=== PATIENT | male | born 1965 | race Caucasian/White ===

== ENCOUNTER 2022-06-11 09:37 | Inpatient (IN) ==
[2022-06-11] MEDS ORDERED: IOPAMIDOL 100 ML BOTTLE IV ONE (09:38)
[2022-06-11] MEDS ORDERED: 0.9 % SODIUM CHLORIDE 1,000 ML IV ONE (10:02)
--- NOTE | 2022-06-11 10:27 | XRay Report ---
INDICATION: mid thoracic pain TECHNIQUE: PA and lateral upright chest x-ray COMPARISON: None FINDINGS: Lungs: Lungs are negative. No focal pulmonary parenchymal infiltrate or mass Heart, vascular: No significant cardiomegaly. Pulmonary vascularity is normal. No pulmonary edema or pulmonary congestion Mediastinum, he: No mediastinal widening. No hilar mass Pleura:No pleural fluid. No pleural-based mass or calcification Thoracic spine, ribs: No thoracic compression fracture. Ribs are negative. No fracture. No lytic lesion IMPRESSION: Negative PA and lateral chest x-ray Interpreted and Authenticated by: Douglas Woods 06/11/22
[2022-06-11 11:29] LABS: Basophils # (Auto) 0.06 K/mcL (0.00-0.30); Basophils % (Auto) 0.7 % (0.0-2.0); Eosinophils % (Auto) 3.7 % (0.0-7.0); Hematocrit 45.4 % (40.1-51.0); Hemoglobin 15.6 g/dL (13.7-17.5); Lymphocytes # (Auto) 1.72 K/mcL (1.50-4.80); Lymphocytes % (Auto) 21.2 % (15.5-49.0); Mean Cell Volume 89.7 fL (80.0-100.0); Mean Corpuscular HGB Conc 34.4 g/dL (31.0-36.0); Mean Platelet Volume 10.5 fL (8.8-12.5); Monocytes # (Auto) 0.58 K/mcL (0.10-0.90); Monocytes % (Auto) 7.2 % (1.0-12.0); Platelet Count 389 K/mcL (140-440); RBC 5.06 M/mcL (4.63-6.08); Red Cell Distribution Width 12.9 % (11.5-14.5); WBC 8.1 K/mcL (4.5-11.0)
--- NOTE | 2022-06-11 11:40 | Cat Scan Report ---
INDICATION: epigatric pain. 25# unintended wt. loss. COMPARISON: None. TECHNIQUE: Axial images were obtained through the abdomen and pelvis. Sagittally and coronally reformatted images. 80 mL Isovue 370 injected intravenously. Oral contrast material was not administered FINDINGS: Lung bases:Negative. No pulmonary parenchymal nodule. No pleural fluid or pericardial fluid There is a moderate hiatal hernia. Liver:Negative. No focal intrahepatic mass. No focal abnormality. Liver contour is smooth. No evidence for cirrhosis Gallbladder, bilary:No calcified gallstones. No gallbladder wall thickening. No dilated intra or extrahepatic bile ducts. Spleen:No splenomegaly. Normal enhancement of splenic and portal veins. Pancreas:No pancreatic mass. No peripancreatic abnormality Adrenal glands:Negative Kidneys,ureters,bladder:No solid renal mass. No hydronephrosis. No obstructing or nonobstructing calculi. No hydroureter. No ureteral calculus. No bladder stone. No detectable bladder mass. Gastrointestinal:No detectable colonic mass. There is no diverticulitis. There is mild sigmoid diverticulosis. Small bowel is fluid-filled and mildly prominent. Jejunum measures approximately 18 mm in maximum cross-sectional diameter. There is no transition point. No evidence for significant obstruction Moderate hiatal hernia. Stomach and duodenum are otherwise negative Appendix: The appendix is negative Vascular:Negative abdominal aorta. Superior mesenteric artery and celiac trunk are normal. Normal opacification of the inferior mesenteric artery. There is a retroaortic aortic left renal vein Lymphatic:No retroperitoneal or mesenteric adenopathy Mesentery, peritoneum: No free intraperitoneal fluid. No mesenteric or retroperitoneal mass. No intra-abdominal abscess. Reproductive:Prostate is not significantly enlarged Musculoskeletal:No lumbar compression fractures. Sacrum and pelvis are negative. No hip fracture. No abdominal wall or inguinal hernia IMPRESSION: 1. Moderate hiatal hernia 2. Mild sigmoid diverticulosis The exam was performed using radiation dose optimization techniques including, but not limited to, automated exposure control, adjustment of the mA and/or kV according to patient size and use of iterative reconstruction technique. Interpreted and Authenticated by: Douglas Woods 06/11/22
[2022-06-11 11:50] LABS: ALT/SGPT 12 U/L (<40); AST/SGOT 14 U/L (<40); Albumin 5.1 gm/dL (3.2-5.2); Alkaline Phosphatase 127 U/L (39-117); Bilirubin,Total 0.5 mg/dL (0.1-1.0); Blood Urea Nitrogen 8 mg/dL (6-20); Calcium 10.5 mg/dL (8.6-10.4); Carbon Dioxide 28 mmol/L (22-30); Chloride 100 mmol/L (96-108); Globulin 2.5 gm/dL (2.2-3.7); Glomerular Filtration Rate 100; Glucose 89 mg/dL (70-105)
--- NOTE | 2022-06-11 11:57 | Emergency Department Note ---
Abdominal Pain HPI General Chief Complaint: Abdominal Pain Stated Complaint: Back pain Time Seen by Provider: 06/11/22 09:47 Source: patient Mode of arrival: ambulatory Limitations: no limitations History of Present Illness HPI Narrative: Narrative: 56-year-old male presents emergency department complaining of epigastric abdominal pain that radiates through to his back. He states that in March he found himself unable to eat and that over the next few months his ability to eat got worse and worse till now when he is only able to eat oatmeal and soup. States that his weight was 162 pounds and is now down to 137, a 25 pound unintended weight loss. He describes abdominal pain as sharp, stabbing. Rates it as an 8 on a 0-to-10 scale. Pain is worse when he eats. No prior similar. Pain radiates through to the back. Pain is intermittent depending on when he eats. Patient states that he does smoke tobacco but rarely drinks alcohol. He takes no medicines. He has no medical allergies except Actifed. Related Data Home Medications Medication Instructions Recorded Confirmed No Known Home Meds 06/11/22 06/11/22 Allergies Allergy/AdvReac Type Severity Reaction Status Date / Time No Known Drug Allergies Allergy Unverified 06/11/22 10:34 Review of Systems ROS ROS Narrative: Narrative: Constitutional: Denies fever Eyes: Denies eye discharge ENT ED: Denies throat pain or rhinorrhea Cardiovascular: Denies chest pain Respiratory: Denies shortness of breath Gastrointestinal: Reports abdominal pain, nausea (With food) and vomiting; Denies diarrhea Genitourinary: Denies dysuria Musculoskeletal: Reports back pain Integumentary: Denies rash Neurological: Denies headache Psychiatric: Reports anxiety Hematological/Lymphatic: Denies easy bleeding Allergic/Immunologic: Denies facial swelling PFS Narrative Patient History Narrative: Narrative: Medical/Surgical/Family History All Active Problems (Updated 06/11/22 @ 21:51 by Lopez Roque MD) Unexplained weight loss (Acute) Weight loss (Acute) Dysphagia (Acute) Acute pancreatitis (Acute) Exam Narrative Narrative: Narrative: Maximal tenderness of the pain was in the epigastric area. From there it radiated through to the back. Patient did not have any peritoneal signs. General Limitations: no limitations General appearance: Present alert and in distress Head Head: Present atraumatic and normocephalic Eye Eye: Present EOMI Neck Neck: Present normal inspection and trachea midline; Absent tenderness Chest Chest: Present symmetric chest wall rise Respiratory Respiratory: Present normal lung sounds bilaterally; Absent respiratory distress or wheezes Cardiovascular Cardiovascular: Present regular rate and normal rhythm Adbominal Abdominal: Present tenderness (Tender in the epigastric area with some radiation to the left upper quadrant. No masses. No peritoneal signs.); Absent distention, guarding, rebound or rigidity Extremities Extremities: Present normal inspection; Absent pedal edema or pretibial edema Back Back: Present normal inspection; Absent tenderness Neurological Neurological: Present alert and oriented X3 Psychiatric Psychiatric: Present normal affect and normal mood Skin Skin: Present warm (WNL) and dry Course Vital Signs Vital signs: Vital Signs Temperature 98.1 F 06/11/22 09:39 Pulse Rate 105 H 06/11/22 09:39 Respiratory Rate 18 06/11/22 09:39 Blood Pressure 133/91 06/11/22 09:39 Pulse Oximetry (%) 99 06/11/22 09:39 Oxygen Delivery Method 06/11/22 09:39 Temperature 98.9 F 06/11/22 19:34 Pulse Rate 65 06/11/22 19:34 Respiratory Rate 12 06/11/22 19:34 Blood Pressure 131/95 06/11/22 19:34 Pulse Oximetry (%) 97 06/11/22 19:34 Oxygen Delivery Method 06/11/22 19:[address] [facility] MDM Narrative Medical decision making narrative: Narrative: Middle-age male with 25 pound weight loss and epigastric pain since March with difficulty eating. Differential diagnosis includes gastric ulcer, GERD, gastritis, pancreatitis, obstructing tumor, other. Chest x-ray was unremarkable. CT scan of the abdomen showed: IMPRESSION: 1. Moderate hiatal hernia 2. Mild sigmoid diverticulosis White count was normal at 8.1. Hemoglobin was normal at 15.6. Chemistry panel was normal except for minimally elevated calcium of 10.5 and a mildly elevated alkaline phosphatase of 127. Lipase elevated at 283. Patient was diagnosed with having acute pancreatitis. Case was discussed with Dr. OVALLE. He requested we obtain triglyceride level. We obtain that and it was normal. Dr. Sarah then admitted the patient to the hospital for further care. Sepsis Sepsis Identified: No Lab Data Result diagrams: 06/11/22 10:03 06/11/22 10:20 Labs: Lab Results 06/11/22 06/11/22 06/11/22 Range/Units 10:03 10:03 10:20 WBC 8.1 (4.5-11.0) K/mcL RBC 5.06 (4.63-6.08) M/mcL Hgb 15.6 (13.7-17.5) g/dL Hct 45.4 (40.1-51.0) % MCV 89.7 (80.0-100.0) fL MCH 30.8 (26.0-34.0) pg MCHC 34.4 (31.0-36.0) g/dL RDW 12.9 (11.5-14.5) % Plt Count 389 (140-440) K/mcL MPV 10.5 (8.8-12.5) fL Immature Gran % (Auto) 0.2 (0.0-0.5) % Neut % (Auto) 67.0 (38.0-78.0) % Lymph % (Auto) 21.2 (15.5-49.0) % [place] % (Auto) 7.2 (1.0-12.0) % Eos % (Auto) 3.7 (0.0-7.0) % Baso % (Auto) 0.7 (0.0-2.0) % Lymph # (Auto) 1.72 (1.50-4.80) K/mcL Winn # (Auto) 0.58 (0.10-0.90) K/mcL Eos # (Auto) 0.30 (0.00-0.70) K/mcL Baso # (Auto) 0.06 (0.00-0.30) K/mcL Immature Gran # 0.02 (0.00-0.05) K/mcl Absolute Neutrophils 5.42 (1.80-8.00) K/mcL Sodium 140 (133-145) mmol/L Potassium 4.3 (3.3-5.1) mmol/L Chloride 100 (96-108) mmol/L Carbon Dioxide 28 (22-30) mmol/L Anion Gap 12.0 (8.0-16.0) BUN 8 (6-20) mg/dL Creatinine 0.8 (0.7-1.2) mg/dL GFR Calculation 100 Glucose 89 (70-105) mg/dL Calcium 10.5 H (8.6-10.4) mg/dL Total Bilirubin 0.5 (0.1-1.0) mg/dL AST 14 (<40) U/L ALT 12 (<40) U/L Alkaline Phosphatase 127 H (39-117) U/L Total Protein 7.6 (5.9-8.4) gm/dL Albumin 5.1 (3.2-5.2) gm/dL Globulin 2.5 (2.2-3.7) gm/dL Albumin/Globulin Ratio 2.0 (1.0-2.3) Triglycerides 137 (<150) mg/dL Lipase 283 H (7-60) U/L Ethyl Alcohol mg/dL mg/dL Ethyl Alcohol g/dL (<0.010) gm/dL 06/11/22 Range/Units 10:20 WBC (4.5-11.0) K/mcL RBC (4.63-6.08) M/mcL Hgb (13.7-17.5) g/dL Hct (40.1-51.0) % MCV (80.0-100.0) fL MCH (26.0-34.0) pg MCHC (31.0-36.0) g/dL RDW (11.5-14.5) % Plt Count (140-440) K/mcL MPV (8.8-12.5) fL Immature Gran % (Auto) (0.0-0.5) % Neut % (Auto) (38.0-78.0) % Lymph % (Auto) (15.5-49.0) % Winn % (Auto) (1.0-12.0) % Eos % (Auto) (0.0-7.0) % Baso % (Auto) (0.0-2.0) % Lymph # (Auto) (1.50-4.80) K/mcL Winn # (Auto) (0.10-0.90) K/mcL Eos # (Auto) (0.00-0.70) K/mcL Baso # (Auto) (0.00-0.30) K/mcL Immature Gran # (0.00-0.05) K/mcl Absolute Neutrophils (1.80-8.00) K/mcL Sodium (133-145) mmol/L Potassium (3.3-5.1) mmol/L Chloride (96-108) mmol/L Carbon Dioxide (22-30) mmol/L Anion Gap (8.0-16.0) BUN (6-20) mg/dL Creatinine (0.7-1.2) mg/dL GFR Calculation Glucose (70-105) mg/dL Calcium (8.6-10.4) mg/dL Total Bilirubin (0.1-1.0) mg/dL AST (<40) U/L ALT (<40) U/L Alkaline Phosphatase (39-117) U/L Total Protein (5.9-8.4) gm/dL Albumin (3.2-5.2) gm/dL Globulin (2.2-3.7) gm/dL Albumin/Globulin Ratio (1.0-2.3) Triglycerides (<150) mg/dL Lipase (7-60) U/L Ethyl Alcohol mg/dL < 10.0 mg/dL Ethyl Alcohol g/dL < 0.010 (<0.010) gm/dL Discharge Plan Patient/Caregiver Discharge Instructions Pt seen by [facility] only: No Clinical Impression: Acute pancreatitis Activity: as instructed Patient Disposition: Xfer As Inpt ([facility]) Condition: Fair Discharge Date/Time: 06/11/22 15:46
[2022-06-11 14:14] LABS: Alcohol, Blood < 10.0 mg/dL; Alcohol,Blood < 0.010 gm/dL (<0.010)
--- NOTE | 2022-06-11 14:21 | Internal Med History&Physical ---
HPI History of Present Illness Patient information: Note initiated : 06/11/22 at 2:15 pm Service Date, if different from initiated Date: [] Patient: Pavel Funez 56 y/o M admitted on for Back pain. Chief Complaint: [abdominal pain] Chief complaint: abdominal pain History of present illness: Mr. Funez is a 56 year old M no past medical history presenting with 1 month history of epigastric abdominal pain, right upper quadrant abdominal pain with radiations to the right upper back, dysphagia, and unintentionally weight loss of 25 pounds over the past month. There was no prior similar episode. Over the past month, patient has moderate sharp cramping epigastric abdominal pain, right upper quadrant abdominal pain with radiation to the right upper back whenever he eats or drinks. He would feel like the food or drink would get stuck in his stomach. The pain is graded as moderate in intensity. It is relieved by raising his right arm up or moving the right arm wrong. He denies any nausea, vomiting, hematemesis, constipations, or any black or bloody stool. He also denies any bloody urine. Vital signs within normal limits. Labs significant for lack of leukocytosis with WBC 8.1. Lipase elevated to 283. Triglyceride 137 normal. Alkaline phosphatase 137 mildly elevated, with rest of the liver function test within normal limits. Serum alcohol level less than 0.01. Patient denies any cigarette smoking or illicit drug use, he is doing alcohol socially about once a week. CT abdomen of the pelvis showing moderate hiatal hernia and mild sigmoid diverticulosis. Chest x-ray and unremarkable. Constitutional Constitutional: Present weight loss; Absent chills, excessive sweating, fatigue, fever(s) or weakness EENT Eyes: Absent blurry vision, change in vision, loss of vision or other visual disturbances Ears: Absent decreased hearing or tinnitus Nose, mouth and throat: Absent abnormal hearing, dry mouth, headache(s), nasal congestion or sore throat Cardiovascular Cardiovascular: Absent chest pain, chest pain at rest, edema, irregular heart rhythm or palpatations Respiratory Respiratory: Absent cough, dyspnea or wheezing Gastrointestinal Gastrointestinal: Present abdominal pain and dysphagia; Absent constipation, diarrhea, nausea or vomiting Musculoskeletal Musculoskeletal: Absent back pain, deformity, limited range of motion, muscle cramps, muscle weakness or numbness Integumentary Integumentary: Absent lesions, rash or wounds Neurological Neurological: Absent focal weakness, headache(s) or numbness Psychiatric Psychiatric: Absent anxiety, depression or hallucinations PFSH PFSH All Active Problems (Updated 06/11/22 @ 14:22 by Khurram Raymond MD) Weight loss (Acute) Dysphagia (Acute) Acute pancreatitis (Acute) MEDS/ALLERGIES Home Medications and Allergies Allergies Allergy/AdvReac Type Severity Reaction Status Date / Time No Known Drug Allergies Allergy Unverified 06/11/22 10:34 EXAM Constitutional Vitals: Temp Pulse Resp BP Pulse Ox O2 Del Method 36.7 C 81 18 127/104 97 06/11/22 09:39 06/11/22 13:55 06/11/22 09:39 06/11/22 12:55 06/11/22 13:55 06/11/22 09:39 General appearance: cooperative and no acute distress Head Head exam: Present atraumatic and normocephalic Eye Eye exam: Present EOMI and PERRL ENT ENT exam: Present mucous membranes moist, normal exam and normal external ear exam Neck Neck exam: Present normal inspection; Absent lymphadenopathy, tenderness or thyromegaly Respiratory Respiratory exam: Absent accessory muscle use, respiratory distress or wheezes Cardiovascular Cardiovascular exam: Present normal rate and rhythm; Absent JVD GI/Abdominal GI/Abdominal exam: Present normal bowel sounds and soft; Absent organomegaly or tenderness Rectal Rectal exam: Present deferred Extremities Exam Extremities exam: Present full ROM, normal capillary refill and normal inspection; Absent tenderness Neurological Exam Neurological exam: Present alert, CN II-XII intact and oriented X3; Absent motor sensory deficit Psychiatric Psychiatric exam: Present normal affect and normal mood; Absent anxious or depressed Skin Skin exam: Present dry and intact DATA Data Completed and Pending Labs: Labs from last 24 hours 06/11/22 06/11/22 06/11/22 10:20 10:20 10:03 WBC RBC Hgb Hct MCV MCH MCHC RDW Plt Count MPV Immature Gran % (Auto) Neut % (Auto) Lymph % (Auto) [place] % (Auto) Eos % (Auto) Baso % (Auto) Lymph # (Auto) [place] # (Auto) Eos # (Auto) Baso # (Auto) Immature Gran # Absolute Neutrophils Sodium 140 Potassium 4.3 Chloride 100 Carbon Dioxide 28 Anion Gap 12.0 BUN 8 Creatinine 0.8 GFR Calculation 100 Glucose 89 Calcium 10.5 H Total Bilirubin 0.5 AST 14 ALT 12 Alkaline Phosphatase 127 H Total Protein 7.6 Albumin 5.1 Globulin 2.5 Albumin/Globulin Ratio 2.0 Triglycerides 137 Lipase 283 H Ethyl Alcohol mg/dL < 10.0 Ethyl Alcohol g/dL < 0.010 06/11/22 10:03 WBC 8.1 RBC 5.06 Hgb 15.6 Hct 45.4 MCV 89.7 MCH 30.8 MCHC 34.4 RDW 12.9 Plt Count 389 MPV 10.5 Immature Gran % (Auto) 0.2 Neut % (Auto) 67.0 Lymph % (Auto) 21.2 [place] % (Auto) 7.2 Eos % (Auto) 3.7 Baso % (Auto) 0.7 Lymph # (Auto) 1.72 [place] # (Auto) 0.58 Eos # (Auto) 0.30 Baso # (Auto) 0.06 Immature Gran # 0.02 Absolute Neutrophils 5.42 Sodium Potassium Chloride Carbon Dioxide Anion Gap BUN Creatinine GFR Calculation Glucose Calcium Total Bilirubin AST ALT Alkaline Phosphatase Total Protein Albumin Globulin Albumin/Globulin Ratio Triglycerides Lipase Ethyl Alcohol mg/dL Ethyl Alcohol g/dL A/P Assessment and plan (1) Acute pancreatitis: Status: Acute (2) Dysphagia: Status: Acute (3) Weight loss: Status: Acute Narrative A/P Narrative: Assessment and Plans: 1. Acute idiopathic pancreatitis: Inpatient med surg s/p IV fluid bolus given in the ED NPO with IV fluid NS@150cc/hr Zofran Oxycodone Morphine 2. Dysphagia, unintentional weight loss: Suspect upper GI obstruction Insert NG tube Consult general surgery Dr. Stephen for potential EGD, greatly appreciated GI ppx: not currently indicated DVT ppx: SCDs Code status: Full Prognosis: guarded Disposition: inpatient med surg Time Spent With Patient Time: Total time spent is greater than 50% in coordination of care (as documented) at patient's floor/unit and/or counseling patient: Total time spent with greater than 50% in coordination of care (as documented) at patient's floor/unit and/or counseling patient:: 50 - 70 minutes
[2022-06-11] MEDS ORDERED: BENZOCAINE 1 SPRAY 20% BOTTLE TOPICAL ONE (14:37)
--- NOTE | 2022-06-11 15:45 | XRay Report ---
INDICATION: Post placement nasogastric tube placement TECHNIQUE: Supine abdomen. COMPARISON: CT scan dated 06/11/2022 IMPRESSION: Esophagogastric tube is curled in the distal esophagus with its tip directed cephalad Interpreted and Authenticated by: Douglas Woods 06/11/22
[2022-06-11] MEDS ORDERED: ACETAMINOPHEN 325 MG TABLET PO PRN (15:50)
[2022-06-11] MEDS ORDERED: morphine 4 MG/ML VIAL IV PRN (15:50)
[2022-06-11] MEDS ORDERED: ONDANSETRON 4 MG/2 ML VIAL IV PRN (15:50)
[2022-06-11] MEDS ORDERED: oxyCODONE HCL 5 MG TABLET PO PRN (15:50)
[2022-06-11] MEDS ORDERED: IPRATROPIUM/ALBUTEROL 3 ML AMPUL.NEB NEB PRN (15:50)
[2022-06-11] MEDS: 0.9 % SODIUM CHLORIDE 1,000 ML IV SCH ×2 (16:27→23:17)
--- NOTE | 2022-06-11 17:52 | General Surgery Consult Note ---
HPI Date of Consult Consult Date: 06/11/22 Requesting physician: Angelina Stephen Primary Care Provider: PCP No Consult Narrative Patient Information: Note initiated : 06/11/22 at 5:47 pm Service Date, if different from initiated Date: [] Patient: Pavel Funez 56 y/o M admitted on 06/11/22 for Back pain. Chief Complaint: [] Chief complaint: Recurrent abdominal pain with nausea and vomiting and weight loss Reason for consult: Abdominal pain with nausea vomiting cc:: C 56-year-old male who presents with recurrent episodes of nausea vomiting with substernal chest pain and significant weight loss. He has been symptomatic since March of this year. He states that each time that he has p.o. intake with solid or liquid he has vomiting of the food intake shortly thereafter. He states that most of the time the food is foamy without any solid components. He has not had any hematemesis. He has noticed that his bowel movements or much softer however he is primarily taking in liquids. He rarely takes in solids. He has not had rectal bleeding and he denies having melena. He does have some postprandial epigastric pain with epigastric and right upper quadrant pain. CT of abdomen and pelvis does not show any obstructive symptoms. There is mild thickening of the gastric mucosa but this may be related to the fact that his stomach is decompressed. There are no calcified gallstones. Upper abdominal ultrasound was not performed. There is mild elevation of lipase. LFTs are normal. Total weight loss is about 25 pounds since March. Constitutional Constitutional: Present malaise EENT Ears: Present decreased hearing and ear pain Cardiovascular Cardiovascular: Present chest pain at rest and chest pain with activity; Absent palpatations or pedal edema Respiratory Respiratory: Absent dyspnea on exertion, wheezing or excessive phlegm production Gastrointestinal Gastrointestinal: Present abdominal pain, belching, change in bowel habits, change in stool character, cramping, dyspepsia, dysphagia, nausea and vomiting Genitourinary Genitourinary: change in urinary stream and difficulty urinating Musculoskeletal Musculoskeletal: Absent abnormal gait, deformity or myalgias Integumentary Integumentary: Absent pruritus Neurological Neurological: Present dizziness; Absent abnormal gait or tremor(s) Psychiatric Psychiatric: Absent abnormal sleep pattern or depression Endocrine Endocrine: Absent fatigue, palpitations or polyphagia Hematologic/Lymphatic Hematologic/Lymphatic: Absent easy bleeding, easy bruising or lymphadenopathy Allergic/Immunologic Allergic/Immunologic: Absent tongue swelling, throat swelling, itchy eyes, uticaria, wheezing, GI upset with certain foods or lip swelling PFSH PFSH All Active Problems (Updated 06/11/22 @ 18:16 by Angelina Stephen MD) Unexplained weight loss (Acute) Weight loss (Acute) Dysphagia (Acute) Acute pancreatitis (Acute) Social History smoking status: Current every day smoker MEDS/ALLERGIES Home Medications and Allergies Home Medications Medication Instructions Recorded Confirmed Type No Known Home Meds 06/11/22 06/11/22 History Allergies Allergy/AdvReac Type Severity Reaction Status Date / Time No Known Drug Allergies Allergy Unverified 06/11/22 10:34 Physical Examination Vital Signs Vital signs: Temp Pulse Resp BP Pulse Ox O2 Del Method 97.9 F 96 H 20 136/55 94 06/11/22 15:46 06/11/22 15:46 06/11/22 15:46 06/11/22 15:46 06/11/22 15:46 06/11/22 15:46 General physical appearance General physical exam: well developed and no distress; negative no pain or chronically ill Eyes Eye exam: PERRL and normal ocular movement ENT ENT exam: normal nares, normal mucosa, no hearing loss and no congestion Head Head exam IM: Present atraumatic, normal inspection and normocephalic Neck Neck exam: no masses, no bruits, trachea midline, no lymphadenopathy and no venous distension Cardiovascular Cardiovascular exam IM: Present normal rate and rhythm, RRR and +S1; Absent gallop or JVD Respiratory Respiratory exam: normal expansion, normal respiratory effort and clear to auscultation Abdomen Abdomen: Present soft and bowel sounds (Normal bowel sounds); Absent non tender Integumentary Integumentary: Present no rash, no growths and no abnormal pigmentation Neurologic Neurologic: Present normal coordination and normal sensation Musculoskeletal Musculoskeletal: Present normal gait and normal posture Psychiatric Psychiatric: Present oriented to time, oriented to person, oriented to place, speech is normal and memory intact Results Labs Result diagrams: 06/11/22 10:03 06/11/22 10:20 Labs: Abnormal lab results 06/11/22 Range/Units 10:20 Calcium 10.5 H (8.6-10.4) mg/dL Alkaline Phosphatase 127 H (39-117) U/L Lipase 283 H (7-60) U/L Diabetes panel 06/11/22 06/11/22 Range/Units 10:03 10:20 Sodium 140 (133-145) mmol/L Potassium 4.3 (3.3-5.1) mmol/L Chloride 100 (96-108) mmol/L Carbon Dioxide 28 (22-30) mmol/L BUN 8 (6-20) mg/dL Creatinine 0.8 (0.7-1.2) mg/dL Glucose 89 (70-105) mg/dL Calcium 10.5 H (8.6-10.4) mg/dL AST 14 (<40) U/L ALT 12 (<40) U/L Alkaline Phosphatase 127 H (39-117) U/L Total Protein 7.6 (5.9-8.4) gm/dL Albumin 5.1 (3.2-5.2) gm/dL Triglycerides 137 (<150) mg/dL Calcium panel 06/11/22 Range/Units 10:20 Calcium 10.5 H (8.6-10.4) mg/dL Albumin 5.1 (3.2-5.2) gm/dL Pituitary panel 06/11/22 Range/Units 10:20 Sodium 140 (133-145) mmol/L Potassium 4.3 (3.3-5.1) mmol/L Chloride 100 (96-108) mmol/L Carbon Dioxide 28 (22-30) mmol/L BUN 8 (6-20) mg/dL Creatinine 0.8 (0.7-1.2) mg/dL Glucose 89 (70-105) mg/dL Calcium 10.5 H (8.6-10.4) mg/dL Adrenal panel 06/11/22 Range/Units 10:20 Sodium 140 (133-145) mmol/L Potassium 4.3 (3.3-5.1) mmol/L Chloride 100 (96-108) mmol/L Carbon Dioxide 28 (22-30) mmol/L BUN 8 (6-20) mg/dL Creatinine 0.8 (0.7-1.2) mg/dL Glucose 89 (70-105) mg/dL Calcium 10.5 H (8.6-10.4) mg/dL Total Bilirubin 0.5 (0.1-1.0) mg/dL AST 14 (<40) U/L ALT 12 (<40) U/L Alkaline Phosphatase 127 H (39-117) U/L Total Protein 7.6 (5.9-8.4) gm/dL Albumin 5.1 (3.2-5.2) gm/dL All other labs normal. A/P Assessment and plan (1) Unexplained weight loss: Status: Acute (2) Dysphagia: Status: Acute (3) Acute pancreatitis: Status: Acute Plan Patient symptoms of a vague nature. Must rule out gallstone disease and follow- up with barium swallow and small bowel follow-through. Repeat CMP and amylase in the a.m. Upper abdominal ultrasound in the a.m. Sepsis Sepsis Identified: No Time Spent With Patient Time: Total time spent is greater than 50% in coordination of care (as documented) at patient's floor/unit and/or counseling patient:
[2022-06-11] MEDS: DOCUSATE SODIUM 100 MG CAPSULE PO SCH (19:41)
[2022-06-11] MEDS: SENNOSIDES 1 TABLET PO SCH (19:41)
[2022-06-11] MEDS: 0.9 % SODIUM CHLORIDE 10 ML SYRINGE IV SCH (21:12)
--- NOTE | 2022-06-12 05:50 | Ultrasound Report ---
INDICATION: Recurrent right upper quadrant and epigastric abdo TECHNIQUE: Grayscale and color flow Doppler spectral imaging COMPARISON: None. FINDINGS: Gallbladder:Negative. No cholelithiasis. No gallbladder wall thickening or pericholecystic fluid Common bile duct:No intra or extrahepatic bile duct dilatation.. Common bile duct measures6 mm Liver:No solid or cystic hepatic mass. Liver contour is smooth. No ascites. Portal vein:Normal hepatopedal portal venous flow Pancreas:Visualized portions of the pancreas are normal IMPRESSION: Negative gallbladder Interpreted and Authenticated by: Douglas Woods 06/12/22
[2022-06-12] MEDS: 0.9 % SODIUM CHLORIDE 10 ML SYRINGE IV SCH ×3 (05:57→20:32)
[2022-06-12] MEDS: 0.9 % SODIUM CHLORIDE 1,000 ML IV SCH ×4 (05:57→16:44)
[2022-06-12 07:24] LABS: Basophils # (Auto) 0.04 K/mcL (0.00-0.30); Basophils % (Auto) 0.6 % (0.0-2.0); Eosinophils % (Auto) 6.9 % (0.0-7.0); Hematocrit 37.1 % (40.1-51.0); Hemoglobin 12.6 g/dL (13.7-17.5); Lymphocytes # (Auto) 1.68 K/mcL (1.50-4.80); Lymphocytes % (Auto) 23.1 % (15.5-49.0); Mean Cell Volume 90.5 fL (80.0-100.0); Mean Platelet Volume 10.8 fL (8.8-12.5); Monocytes # (Auto) 0.48 K/mcL (0.10-0.90); Monocytes % (Auto) 6.6 % (1.0-12.0); Neutrophils % (Auto) 62.7 % (38.0-78.0); Platelet Count 309 K/mcL (140-440); Red Cell Distribution Width 13.1 % (11.5-14.5); WBC 7.3 K/mcL (4.5-11.0)
[2022-06-12 08:29] LABS: ALT/SGPT 8 U/L (<40); AST/SGOT 10 U/L (<40); Albumin 3.9 gm/dL (3.2-5.2); Albumin/Globulin Ratio 2.2 (1.0-2.3); Alkaline Phosphatase 93 U/L (39-117); Bilirubin,Total 0.6 mg/dL (0.1-1.0); Blood Urea Nitrogen 12 mg/dL (6-20); Calcium 9.1 mg/dL (8.6-10.4); Carbon Dioxide 24 mmol/L (22-30); Chloride 105 mmol/L (96-108); Globulin 1.8 gm/dL (2.2-3.7); Glomerular Filtration Rate 106; Glucose 77 mg/dL (70-105); Phosphorous 3.2 mg/dL (2.5-4.5)
[2022-06-12] MEDS: DOCUSATE SODIUM 100 MG CAPSULE PO SCH ×2 (08:51→20:34)
[2022-06-12] MEDS ORDERED: PROPOFOL 200 MG/20 ML VIAL IV ONE (10:43)
[2022-06-12] MEDS ORDERED: ONDANSETRON 4 MG/2 ML VIAL ONE (10:43)
[2022-06-12] MEDS ORDERED: LIDOCAINE HCL/PF 100 MG/5 ML SYRINGE IV ONE (10:43)
[2022-06-12] MEDS ORDERED: GLYCOPYRROLATE 0.2 MG/ML VIAL IV ONE (10:43)
[2022-06-12] MEDS ORDERED: KETAMINE 50 MG/ML Syringe (ANEST) IV ONE (10:43)
--- NOTE | 2022-06-12 11:11 | Brief Operative Note ---
Brief Operative Note Date of procedure: 06/12/22 Pre-op diagnosis: DYSPHAGIA; WEIGHT LOSS;NAUSEA AND VOMITING Post-op diagnosis: other (DISTAL ESOPHAGEAL NEOPLASM WITH HIGH GRADE STENOSIS;EROSIVE GASTRODUODENITIS) Procedure: EGD WITH BIOPSY OF ESOPHAGEAL NEOPLASTIC MASS Grafts/Implants: No Anesthesia: MAC Findings: EXOPHYTIC DISTAL ESOPHAGEAL MASS WITH HIGH GRADE STENOSIS ;EROSIVE CHANGES OF ANTRUM AND DUODENAL BULB Complications: none Surgeon: Angelina Stephen Estimated blood loss (cc): 10 Specimens Removed/Pathology: other (BIOPSIES OF DISTAL ESOPHAGEAL MASS) Condition: stable Disposition: floor
--- NOTE | 2022-06-12 13:50 | Internal Med Progress Note ---
SUBJECTIVE Subjective Patient information: Note initiated : 06/12/22 at 1:44 pm Service Date, if different from initiated Date: [] Patient: Pavel Funez 56 y/o M admitted on 06/11/22 for Back pain. Chief Complaint: [] Interval history: Mr. Funez is a 56 year old M no past medical history presenting with 1 month history of epigastric abdominal pain, right upper quadrant abdominal pain with radiations to the right upper back, dysphagia, and unintentionally weight loss of 25 pounds over the past month. There was no prior similar episode. Over the past month, patient has moderate sharp cramping epigastric abdominal pain, right upper quadrant abdominal pain with radiation to the right upper back whenever he eats or drinks. He would feel like the food or drink would get stuck in his stomach. The pain is graded as moderate in intensity. It is relieved by raising his right arm up or moving the right arm wrong. He denies a ny nausea, vomiting, hematemesis, constipations, or any black or bloody stool. He also denies any bloody urine. Vital signs within normal limits. Labs significant for lack of leukocytosis with WBC 8.1. Lipase elevated to 283. Triglyceride 137 normal. Alkaline phosphatase 137 mildly elevated, with rest of the liver function test within normal limits. Serum alcohol level less than 0.01. Patient denies any cigarette smoking or illicit drug use, he is doing alcohol socially about once a week. CT abdomen of the pelvis showing moderate hiatal hernia and mild sigmoid diverticulosis. Chest x-ray and unremarkable. 06/12: Status post EGD by Dr. Stephen earlier this morning, and he found an exophytic distal esophageal mass with high grade stenosis. He took a biopsy of the mass. Patient is currently denies any nausea or vomiting or epigastric abdominal pain. He is hungry. Started patient on clear liquid diet. Decrease the normal saline from 150 cc/h to 100 cc/h. Continue to provide symptomatic control. Continue to follow-up with pathology reports when available. Repeat CMP lipase and amylase. Constitutional Vitals: Vital Signs Temp Pulse Resp BP Pulse Ox O2 Del Method O2 Flow Rate 36.5 C 66 16 134/88 98 0 06/12/22 12:20 06/12/22 12:20 06/12/22 12:22 06/12/22 12:20 06/12/22 12:20 06/12/22 12:22 06/12/22 11:14 Period Temp Pulse Resp BP Sys/Maria Pulse Ox O2 Del Method O2 Flow Rate Last 24 Hr 36.4 C-37.2 C 56-101 12-20 119-145/55-104 94-100 Nasal Cannula-Room Air 0-2 Intake and Output 06/11/22 06/12/22 06/12/22 21:59 05:59 13:59 Intake Total 2049 1000 Output Total 250 600 Balance 1800 400 Weight 64.637 kg Intake & Output: Intake & Output 06/11/22 06/12/22 06/12/22 21:59 05:59 13:59 Intake Total 2049 1000 Output Total 250 600 Balance 1800 400 Weight 64.637 kg Intake: IV 2000 Sodium Chloride 0.9% 1,000 ml @ 2000 150 mls/hr IV .[id number] [id number] Rx#: [id number] Oral 50 IV - Manual Only 1000 Output: Void Amount 250 600 Other: Urine Appearance Clear Clear Urine Color Dark Yellow Yellow Stool Size Moderate Stool Color Brown Stool Consistency Watery Loose # Voids 1 # Bowel Movements 1 Head Head exam: Present atraumatic and normal inspection Eye Eye exam: Present normal appearance ENT ENT exam: Present mucous membranes moist, normal exam and normal external ear exam Neck Neck exam: Present normal inspection Respiratory Respiratory exam: Present normal respiratory exam Cardiovascular Cardiovascular exam: Present normal rate and rhythm GI/Abdominal GI/Abdominal exam: Present normal bowel sounds Back Exam Back exam: Present normal inspection Neurological Exam Neurological exam: Present alert and oriented X3 Skin Skin exam: Present intact and warm OBJ DATA Labs CBC & Chem 7: 06/12/22 05:13 06/12/22 05:13 Labs: Abnormal Lab Results 06/12/22 06/12/22 06/11/22 05:13 05:13 10:20 RBC 4.10 L Hgb 12.6 L Hct 37.1 L Calcium 10.5 H Alkaline Phosphatase 127 H Total Protein 5.7 L Globulin 1.8 L Lipase 283 H Meds: Medications Acetaminophen (Acetaminophen 325 Mg Tablet) 650 mg PO Q6HP PRN; Protocol PRN Reason: Per Pain Protocol/Fever > 101 Last Admin: 06/11/22 19:41 Dose: 650 mg Albuterol/Ipratropium (Ipratropium/Albuterol 3 Ml Ampul.Neb) 3 ml NEB Q4HRT PRN PRN Reason: Wheezing Docusate Sodium (Docusate Sodium 100 Mg Capsule) 100 mg PO BID [facility] Last Admin: 06/12/22 08:51 Dose: Not Given Sodium Chloride (Sodium Chloride 0.9%) 1,000 mls @ 100 mls/hr IV .Q10H ОЛЕГ Morphine Sulfate (Morphine 4 Mg/Ml Vial) 4 mg IV Q4HP PRN; Protocol PRN Reason: Per Pain Protocol Ondansetron HCl (Ondansetron 4 Mg/2 Ml Vial) 4 mg IV Q6HP PRN PRN Reason: Nausea And Vomiting Oxycodone HCl (Oxycodone Hcl 5 Mg Tablet) 5 mg PO Q4HP PRN; Protocol PRN Reason: Per Pain Protocol Senna (Sennosides 1 Tablet) 2 tab PO HS [facility] Last Admin: 06/11/22 19:41 Dose: 2 tab Sodium Chloride (0.9 % Sodium Chloride 10 Ml Syringe) 10 ml IV Q8 [facility] Last Admin: 06/12/22 05:57 Dose: Not Given A/P Assessment and plan (1) Acute pancreatitis: Status: Acute (2) Dysphagia: Status: Acute (3) Weight loss: Status: Acute (4) Esophageal mass: Status: Acute (5) Anemia, normocytic normochromic: Status: Acute Narrative A/P Narrative: Assessment and Plans: 1. Acute idiopathic pancreatitis: Inpatient med surg s/p IV fluid bolus given in the ED Clear liquid diet with IV fluid NS@100cc/hr Zofran Oxycodone Morphine Repeat Lipase and Amylase 2. Dysphagia, unintentional weight loss: Status post EGD by Dr. Stephen earlier this morning, and he found an exophytic distal esophageal mass with high grade stenosis. He took a biopsy of the mass. Clear liquid diet Continue to follow pathology reports when available Continue to provide symptomatic control 3. Distal esophageal mass: See above 4. Anemia, normocytic normochromic: cbc w/ auto diff in the morning to trend H/H GI ppx: not currently indicated DVT ppx: SCDs Code status: Full Prognosis: Stable Disposition: inpatient med surg Time Spent With Patient Time: Total time spent is greater than 50% in coordination of care (as documented) at patient's floor/unit and/or counseling patient: QUALITY Stroke Symptom Onset Unknown: No VTE Deep Vein Thrombosis/Pulmonary Embolism Present on Admission: No
[2022-06-12 14:40] LABS: Amylase 79 U/L (28-100)
[2022-06-12] MEDS ORDERED: DIATRIZOATE MEGLU/DIATRIZO SOD 120 ML BOTTLE PO ONE (15:05)
--- NOTE | 2022-06-12 17:44 | XRay Report ---
INDICATION: Rule out small bowel obstruction TECHNIQUE: A single swallow of water-soluble contrast material was taken. Spot films and overhead images were obtained COMPARISON: CT scan dated 06/11/2022 FINDINGS: High-grade narrowing of the distal esophagus and gastroesophageal junction. Small amount of contrast material passes into the stomach. Appearance is consistent with a large mass extending from the distal esophagus into the gastric cardia. This mass extends for a length of approximately 8 cm. Findings are consistent with esophageal carcinoma. Dr. Stephen was called with these results IMPRESSION: 1. Large mass involving the distal esophagus and gastric cardia consistent with esophageal carcinoma 2. High-grade partial obstruction to passage of water-soluble contrast material Interpreted and Authenticated by: Douglas Woods 06/12/22
[2022-06-12] MEDS ORDERED: LORazepam 1 MG TABLET PO PRN (18:24)
[2022-06-12] MEDS ORDERED: LORazepam 1 MG TABLET ONE (19:47)
--- NOTE | 2022-06-12 19:56 | Discharge Summary ---
Discharge Provider Provider IMPORTANT FOLLOW-UP INFORMATION FOR PCP: Patient information: Note initiated : 06/12/22 at 7:55 pm Service Date, if different from initiated Date: [] Patient: Pavel Funez 56 y/o M admitted on 06/11/22 for Back pain. Chief Complaint: [] Date of admission: 06/11/22 15:46 Discharge date: 06/12/22 Primary care physician: PCP No Attending physician on admission: Khurram Raymond Consults: 06/11/22 Consult to Physician [CONS] Stat Comment: Consulting Provider: Khurram Raymond Reason For Exam: Physician to Consult 06/11/22 15:50 Consult to Physician [CONS] Routine Comment: Consulting Provider: Angelina Stephen Reason For Exam: Physician to Consult Attending physician on discharge: Khurram Bowman [facility] COURSE Hospital Course Hospital course: Mr. Funez is a 56 year old M no past medical history presenting with 1 month history of epigastric abdominal pain, right upper quadrant abdominal pain with radiations to the right upper back, dysphagia, and unintentionally weight loss of 25 pounds over the past month. There was no prior similar episode. Over the past month, patient has moderate sharp cramping epigastric abdominal pain, right upper quadrant abdominal pain with radiation to the right upper back whenever he eats or drinks. He would feel like the food or drink would get stuck in his stomach. The pain is graded as moderate in intensity. It is relieved by raising his right arm up or moving the right arm wrong. He denies any nausea, vomiting, hematemesis, constipations, or any black or bloody stool. He also denies any bloody urine. Vital signs within normal limits. Labs significant for lack of leukocytosis with WBC 8.1. Lipase elevated to 283. Triglyceride 137 normal. Alkaline phosphatase 137 mildly elevated, with rest of the liver function test within normal limits. Serum alcohol level less than 0.01. Patient denies any cigarette smoking or illicit drug use, he is doing alcohol socially about once a week. CT abdomen of the pelvis showing moderate hiatal hernia and mild sigmoid diverticulosis. Chest x-ray and unremarkable. 06/12: Status post EGD by Dr. Stephen earlier this morning, and he found an exophytic distal esophageal mass with high grade stenosis. He took a biopsy of the mass. Patient is currently denies any nausea or vomiting or epigastric abdominal pain. He is hungry. Started patient on clear liquid diet. Decrease the normal saline from 150 cc/h to 100 cc/h. Continue to provide symptomatic control. Continue to follow-up with pathology reports when available. Repeat CMP lipase and amylase. Patient left AMA Discharge diagnosis: esophageal mass with high grade stenosis; pancreatitis Time Spent with Patient Time attestation: Total time spent providing and/or coordinating discharge services: Time spent: Less than 30 minutes EXAM Constitutional Vitals: Temp Pulse Resp BP Pulse Ox O2 Del Method O2 Flow Rate 37.1 C 74 16 141/71 98 0 06/12/22 16:00 06/12/22 16:00 06/12/22 12:22 06/12/22 16:00 06/12/22 16:00 06/12/22 16:00 06/12/22 11:14 General appearance: cooperative and no acute distress Head Head exam: Present atraumatic and normocephalic Eye Eye exam: Present EOMI and PERRL ENT ENT exam: Present mucous membranes moist, normal exam and normal external ear exam Neck Neck exam: Present normal inspection; Absent lymphadenopathy, tenderness or thyromegaly Respiratory Respiratory exam: Absent accessory muscle use, respiratory distress or wheezes Cardiovascular Cardiovascular exam: Present normal rate and rhythm; Absent JVD GI/Abdominal GI/Abdominal exam: Present normal bowel sounds and soft; Absent organomegaly or tenderness Rectal Rectal exam: Present deferred Extremities Exam Extremities exam: Present full ROM, normal capillary refill and normal inspection; Absent tenderness Neurological Exam Neurological exam: Present alert, CN II-XII intact and oriented X3; Absent motor sensory deficit Psychiatric Psychiatric exam: Present normal affect and normal mood; Absent anxious or depressed Skin Skin exam: Present dry and intact Discharge Data Data Completed and Pending Labs on day of discharge: Labs from last 24 hours 06/12/22 06/12/22 06/12/22 13:51 05:13 05:13 WBC 7.3 RBC 4.10 L Hgb 12.6 L Hct 37.1 L MCV 90.5 MCH 30.7 MCHC 34.0 RDW 13.1 Plt Count 309 MPV 10.8 Immature Gran % (Auto) 0.1 Neut % (Auto) 62.7 Lymph % (Auto) 23.1 [place] % (Auto) 6.6 Eos % (Auto) 6.9 Baso % (Auto) 0.6 Lymph # (Auto) 1.68 [place] # (Auto) 0.48 Eos # (Auto) 0.50 Baso # (Auto) 0.04 Immature Gran # 0.01 Absolute Neutrophils 4.55 Sodium 137 Potassium 4.6 Chloride 105 Carbon Dioxide 24 Anion Gap 8.0 BUN 12 Creatinine 0.7 GFR Calculation 106 Glucose 77 Calcium 9.1 Phosphorus 3.2 Magnesium 1.8 Total Bilirubin 0.6 AST 10 ALT 8 Alkaline Phosphatase 93 Total Protein 5.7 L Albumin 3.9 Globulin 1.8 L Albumin/Globulin Ratio 2.2 Amylase 79 Lipase 36 Discharge Plan Patient/Caregiver Discharge Instructions Activity: as instructed Prescriptions: No Action No Known Home Meds Follow Up Plan Follow up with: No,PCP [Primary Care Provider] - Patient Disposition: Left Against Medical Advice Prognosis: Fair QUALITY VTE Deep Vein Thrombosis/Pulmonary Embolism Present on Admission: No
[2022-06-12] MEDS: SENNOSIDES 1 TABLET PO SCH (20:34)
[2022-06-13] MEDS: 0.9 % SODIUM CHLORIDE 1,000 ML IV SCH (03:00)
[2022-06-13 06:56] LABS: Basophils # (Auto) 0.04 K/mcL (0.00-0.30); Basophils % (Auto) 0.5 % (0.0-2.0); Eosinophils # (Auto) 0.32 K/mcL (0.00-0.70); Eosinophils % (Auto) 4.2 % (0.0-7.0); Hematocrit 35.2 % (40.1-51.0); Hemoglobin 12.2 g/dL (13.7-17.5); Lymphocytes # (Auto) 1.48 K/mcL (1.50-4.80); Lymphocytes % (Auto) 19.4 % (15.5-49.0); Mean Corpuscular HGB Conc 34.7 g/dL (31.0-36.0); Mean Platelet Volume 10.8 fL (8.8-12.5); Monocytes # (Auto) 0.55 K/mcL (0.10-0.90); Monocytes % (Auto) 7.2 % (1.0-12.0); Neutrophils % (Auto) 68.6 % (38.0-78.0); Platelet Count 300 K/mcL (140-440); RBC 3.91 M/mcL (4.63-6.08); Red Cell Distribution Width 12.9 % (11.5-14.5); WBC 7.6 K/mcL (4.5-11.0)
[2022-06-13 07:31] LABS: ALT/SGPT 9 U/L (<40); AST/SGOT 11 U/L (<40); Albumin/Globulin Ratio 2.5 (1.0-2.3); Alkaline Phosphatase 88 U/L (39-117); Bilirubin,Total 0.5 mg/dL (0.1-1.0); Blood Urea Nitrogen 9 mg/dL (6-20); Calcium 9.1 mg/dL (8.6-10.4); Carbon Dioxide 24 mmol/L (22-30); Chloride 105 mmol/L (96-108); Globulin 1.6 gm/dL (2.2-3.7); Glomerular Filtration Rate 106; Glucose 81 mg/dL (70-105); Phosphorous 3.4 mg/dL (2.5-4.5)
[2022-06-13] MEDS: DOCUSATE SODIUM 100 MG CAPSULE PO SCH (08:34)
[2022-06-13] MEDS: 0.9 % SODIUM CHLORIDE 10 ML SYRINGE IV SCH (08:35)
--- NOTE | 2022-06-13 11:28 | Discharge Summary ---
Discharge Provider Provider IMPORTANT FOLLOW-UP INFORMATION FOR PCP: Patient information: Note initiated : 06/13/22 at 11:23 am Service Date, if different from initiated Date: [] Patient: Pavel Funez 56 y/o M admitted on 06/11/22 for Back pain. Chief Complaint: [] Date of admission: 06/11/22 15:46 Discharge date: 06/13/22 Primary care physician: PCP No Attending physician on admission: Khurram Raymond Consults: 06/11/22 Consult to Physician [CONS] Stat Comment: Consulting Provider: Khurram Raymond Reason For Exam: Physician to Consult 06/11/22 15:50 Consult to Physician [CONS] Routine Comment: Consulting Provider: Angelina Stephen Reason For Exam: Physician to Consult Attending physician on discharge: Khurram Bowman [facility] COURSE Hospital Course Hospital course: Mr. Funez is a 56 year old M no past medical history presenting with 1 month history of epigastric abdominal pain, right upper quadrant abdominal pain with radiations to the right upper back, dysphagia, and unintentionally weight loss of 25 pounds over the past month. There was no prior similar episode. Over the past month, patient has moderate sharp cramping epigastric abdominal pain, right upper quadrant abdominal pain with radiation to the right upper back whenever he eats or drinks. He would feel like the food or drink would get stuck in his stomach. The pain is graded as moderate in intensity. It is relieved by raising his right arm up or moving the right arm wrong. He denies any nausea, vomiting, hematemesis, constipations, or any black or bloody stool. He also denies any bloody urine. Vital signs within normal limits. Labs significant for lack of leukocytosis with WBC 8.1. Lipase elevated to 283. Triglyceride 137 normal. Alkaline phosphatase 137 mildly elevated, with rest of the liver function test within normal limits. Serum alcohol level less than 0.01. Patient denies any cigarette smoking or illicit drug use, he is doing alcohol socially about once a week. CT abdomen of the pelvis showing moderate hiatal hernia and mild sigmoid diverticulosis. Chest x-ray and unremarkable. 06/12: Status post EGD by Dr. Stephen earlier this morning, and he found an exophytic distal esophageal mass with high grade stenosis. He took a biopsy of the mass. Patient is currently denies any nausea or vomiting or epigastric abdominal pain. He is hungry. Started patient on clear liquid diet. Decrease the normal saline from 150 cc/h to 100 cc/h. Continue to provide symptomatic control. Continue to follow-up with pathology reports when available. Repeat CMP lipase and amylase. 06/13: Discharged home. Discharge diagnosis: esophageal stenosis, pancreatitis Time Spent with Patient Time attestation: Total time spent providing and/or coordinating discharge services: Time spent: Less than 30 minutes EXAM Constitutional Vitals: Temp Pulse Resp BP Pulse Ox O2 Del Method O2 Flow Rate 36.5 C 68 16 125/82 98 0 06/13/22 08:00 06/13/22 08:00 06/13/22 08:00 06/13/22 08:00 06/13/22 08:00 06/13/22 08:00 06/12/22 11:14 General appearance: cooperative and no acute distress Head Head exam: Present atraumatic and normocephalic Eye Eye exam: Present EOMI and PERRL ENT ENT exam: Present mucous membranes moist, normal exam and normal external ear exam Neck Neck exam: Present normal inspection; Absent lymphadenopathy, tenderness or thyromegaly Respiratory Respiratory exam: Absent accessory muscle use, respiratory distress or wheezes Cardiovascular Cardiovascular exam: Present normal rate and rhythm; Absent JVD GI/Abdominal GI/Abdominal exam: Present normal bowel sounds and soft; Absent organomegaly or tenderness Rectal Rectal exam: Present deferred Extremities Exam Extremities exam: Present full ROM, normal capillary refill and normal inspection; Absent tenderness Neurological Exam Neurological exam: Present alert, CN II-XII intact and oriented X3; Absent motor sensory deficit Psychiatric Psychiatric exam: Present normal affect and normal mood; Absent anxious or depressed Skin Skin exam: Present dry and intact Discharge Data Data Completed and Pending Labs on day of discharge: Labs from last 24 hours 06/13/22 06/13/22 06/12/22 05:12 05:12 13:51 WBC 7.6 RBC 3.91 L Hgb 12.2 L Hct 35.2 L MCV 90.0 MCH 31.2 MCHC 34.7 RDW 12.9 Plt Count 300 MPV 10.8 Immature Gran % (Auto) 0.1 Neut % (Auto) 68.6 Lymph % (Auto) 19.4 [place] % (Auto) 7.2 Eos % (Auto) 4.2 Baso % (Auto) 0.5 Lymph # (Auto) 1.48 L Barry # (Auto) 0.55 Eos # (Auto) 0.32 Baso # (Auto) 0.04 Immature Gran # 0.01 Absolute Neutrophils 5.21 Sodium 138 Potassium 4.3 Chloride 105 Carbon Dioxide 24 Anion Gap 9.0 BUN 9 Creatinine 0.7 GFR Calculation 106 Glucose 81 Calcium 9.1 Phosphorus 3.4 Magnesium 1.6 Total Bilirubin 0.5 AST 11 ALT 9 Alkaline Phosphatase 88 Total Protein 5.6 L Albumin 4.0 Globulin 1.6 L Albumin/Globulin Ratio 2.5 H Amylase 79 Lipase 36 Discharge Plan Patient/Caregiver Discharge Instructions Activity: increase activity as tolerated Diet: Dysphagia Level 6 Soft & Bite-Sized Foods Prescriptions: Continued No Known Home Meds Follow Up Plan Follow up with: Angelina Stephen MD [Physician] - Jeffy Reyez MD [Physician] - (IF you have not heard from the office by Thursday, please call them and get scheduled.) Patient Disposition: Home, Self-Care Prognosis: Fair Rehab Potential: Good I certify that the patient requires SNF services: No Overall status at discharge: patient is back to baseline Discharge Orders: Discharge Order (Routine); Ordered 06/13/22 Ordered By: Khurram BARRERA VTE Deep Vein Thrombosis/Pulmonary Embolism Present on Admission: No
--- NOTE | 2022-06-18 11:37 | EGD Procedure Note ---
DATE OF PROCEDURE: 06/12/2022 PREOPERATIVE DIAGNOSES: Dysphagia, weight loss, nausea, and vomiting. POSTOPERATIVE DIAGNOSES: Distal esophageal neoplasm with high-grade stenosis; erosive gastroduodenitis. PROCEDURE: Esophagogastroduodenoscopy with biopsy of esophageal neoplastic mass. SURGEON: Angelina Stephen M.D. FINDINGS: Exophytic distal esophageal mass with high-grade stenosis; erosive changes of the antrum and duodenal bulb. Biopsies were taken of the distal esophageal mass. DESCRIPTION OF PROCEDURE: Under general anesthesia, the patient was turned to the left lateral decubitus position. Timeout procedure was carried out as per protocol. Bite block was placed. Scope was introduced through the bite block into the esophagus. There was a moderate amount of retained saliva in the [id number] esophagus. This was suctioned and irrigated. His head was elevated some to prevent emesis and aspiration. A very large, exophytic, hemorrhagic mass was seen in the distal esophagus with a very tiny opening. With gentle pressure, the endoscope was pushed through the mass. It was quite friable, so there was some oozing from the mass. The central portion of the mass was ulcerated and very hardened. Once I entered the stomach, there was some old blood in the stomach. This was irrigated. There were inflammatory changes of the antrum with some scattered erosions, but no active bleeding. Pylorus was unremarkable. The duodenal bulb also had erosions. The second, third and fourth portion of the duodenum were normal. Scope was pulled back and retroflex view was done. The exophytic mass protruded into the lumen through the GE junction. Multiple biopsies were taken and sent for pathologic evaluation. The area was irrigated and there was slight oozing, but no major bleeding. Air was suctioned from the stomach and the scope was removed. The esophagus was irrigated and aspirated prior to removal of the scope. The patient tolerated the procedure well. He was awakened and transferred to the postanesthetic care unit in day surgery area in satisfactory condition. LCS:ayaka Job ID: [id number] Doc ID: [id number] Angelina Stephen M.D.
== END 2022-06-13 12:34 | disposition home or self-care (01) | DRG 374 ==
LOC: ED 09:37 → MEDSUR 15:46
PROVIDERS: ADMIT Internal Medicine; ATTEND Internal Medicine